=== PATIENT | female | born 1980 | race Caucasian/White ===

== ENCOUNTER 2016-09-27 05:21 | Emergency (ER) | payer OTHER | END 2016-09-27 07:55 | disposition home or self-care (01) | LOC: FER 05:21 | DX: J30.9 Allergic rhinitis, unspecified (principal); H66.93 Otitis media, unspecified, bilateral; I10 Essential (primary) hypertension; E07.9 Disorder of thyroid, unspecified; F41.0 Panic disorder [episodic paroxysmal anxiety]; Z88.2 Allergy status to sulfonamides; Z88.5 Allergy status to narcotic agent; Z88.8 Allergy status to other drugs, medicaments and biological substances; Z79.899 Other long term (current) drug therapy | CPT/HCPCS: 99283 ==

== ENCOUNTER 2020-06-19 20:18 | Emergency (ER) | payer OTHER ==
[~2020-06-19 20:18] MED LIST: ETODOLAC500 MG PO; FLEXERIL10 MG PO
[2020-06-19] MEDS ORDERED: NAPROXEN500 MG PO (21:26)
== END 2020-06-19 22:00 | disposition home or self-care (01) ==
LOC: FER 20:18
DX: S63.611A Unspecified sprain of left index finger, initial encounter (principal); V49.9XXA Car occupant (driver) (passenger) injured in unspecified traffic accident, initial encounter; Y92.410 Unspecified street and highway as the place of occurrence of the external cause; Y99.0 Civilian activity done for income or pay
CPT/HCPCS: 73140